=== PATIENT | male | born 1965 | race Caucasian/White ===

== ENCOUNTER 2020-12-31 13:56 | Emergency (ER) | payer OTHER ==
--- NOTE | 2020-12-31 14:30 | ED Physician Documentation ---
History of Present Illness - Stated complaint Stated Complaint: DIZZY/LIGHTHEADED - Chief complaint Chief Complaint: General - History obtained from History obtained from: Patient - Additonal information Additional information: Patient comes emergency department chief complaint of vertigo. He states that he has been noticing this for about 3 weeks and and this started when he was in [place] at [place]. However, he states that whenever he drives in his car it seems to be really bad. He does notice some exacerbation when he sits up or turns his head certain ways. Patient states that after he has been riding in the car, he sometimes has trouble keeping his balance because He feels disoriented from the vertigo. However, he denies any focal deficits. Patient states that if he is not having the dizziness, he does not have the incoordination. He states he feels disoriented sometimes and gets occasional headaches, but otherwise, denies any complaints. He states he feels fairly well now but has a vague sense of vertigo. Patient also expresses concern because he has a leaky exhaust duct within his car and has noticed the smoking and vapors coming up when he lifts up his head. He feels that the carbon monoxide may be getting sucked into his car when he is driving and making him sick. He states they measured his carbon monoxide on scene and got a measurement of 3. It is not clear whether this was high or low. No nausea or vomiting. No lightheadedness or fainting. Review of Systems Ten Systems: 10 systems reviewed and negative Constitutional: reports: Reviewed and negative Eyes: reports: Reviewed and negative Ears: reports: Reviewed and negative Nose: reports: Reviewed and negative Throat: reports: Reviewed and negative Cardiac: reports: Reviewed and negative Respiratory: reports: Reviewed and negative GI: reports: Reviewed and negative : reports: Reviewed and negative Skin: reports: Reviewed and negative Musculoskeletal: reports: Reviewed and negative Neurologic: reports: Other (Vertigo) Psychiatric: reports: Reviewed and negative Endocrine: reports: Reviewed and negative Immunocompromised: reports: Reviewed and negative PD PAST MEDICAL HISTORY - Past Medical History Past Medical History: Yes Respiratory: COPD Psych: Post traumatic stress disorder - Present Medications Home Medications: Ambulatory Orders Medication Instructions Recorded Confirmed Meclizine HCl [Motion Sickness] 25 mg PO Q6HR PRN #20 tablet 12/31/20 - Allergies Allergies/Adverse Reactions: Allergies Allergy/AdvReac Type Severity Reaction Status Date / Time No Known Drug Allergies Allergy Verified 12/31/20 14:03 - Social History Does the pt smoke?: No Smoking Status: Never smoker Does the pt drink ETOH?: No Does the pt have substance abuse?: No - Immunizations Immunizations are current?: Yes - POLST Patient has POLST: No PD ED PE NORMAL - Vitals Vital signs reviewed: Yes - General General: Alert and oriented X 3, No acute distress, Well developed/nourished - HEENT HEENT: Atraumatic, PERRL, EOMI, Ears normal, Moist mucous membranes - Neck Neck: Supple, no meningeal sign - Cardiac Cardiac: RRR, No murmur, Strong equal pulses - Respiratory Respiratory: No respiratory distress, Clear bilaterally - Abdomen Abdomen: Soft, Non tender, Non distended - Derm Derm: Normal color, Warm and dry, No rash - Extremities Extremities: No deformity, No edema, No calf tenderness / cord - Neuro Neuro: Alert and oriented X 3, 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 Normal gait.) - Psych Psych: Normal mood, Normal affect Results - Vitals Vitals: Vital Signs - 24 hr 12/31/20 12/31/20 12/31/20 14:03 14:12 16:33 Temperature 36.8 C 36.5 C 36.8 C Heart Rate 88 90 102 H Respiratory 16 16 18 Rate Blood Pressure 139/99 H 139/99 H 157/101 H O2 Saturation 100 97 97 Oxygen O2 Source Room air - Labs Labs: Laboratory Tests 12/31/20 15:34 VBG Total Hgb 15.3 VBG Oxyhemoglobin 64 L VBG Carboxyhemoglobin 0.8 VBG Methemoglobin 0.3 - Rads (name of study) head CT Radiology: Final report received, EMP read indepedently, See rad report (Negative) PD MEDICAL DECISION MAKING - ED course Complexity details: reviewed results, re-evaluated patient, considered differential, d/w patient ED course: Patient was worked up with CT scan of the head and venous carboxyhemoglobin level, both of which were unremarkable. He was given a dose of meclizine. Patient was found to be feeling better. Discussed using meclizine as needed for the vertigo. I suspect benign positional vertigo and motion related vertigo, exacerbated by driving because of the motion. We have discussed the usual indications for return to the ED. Departure - Departure Disposition: 01 Home, Self Care Clinical Impression: Vertigo Condition: Stable Instructions: ED Vertigo Unspecified Prescriptions: Meclizine HCl [Motion Sickness] 25 mg PO Q6HR PRN #20 tablet PRN Reason: Vertigo Comments: Your carbon monoxide levels are normal. Your head CT is also normal. There is no evidence of an emergent cause of your dizziness today. Please take the medication for dizziness as needed and be sure you drink plenty of fluids. You should still get your car checked to see if the exhaust leak can be fixed, as this could make you feel sick without actually causing a high carbon monoxide level. Discharge Date/Time: 12/31/20 16:33
[2020-12-31] MEDS: MECLIZINE 12.5 MG TABLET PO STA (14:32)
--- NOTE | 2020-12-31 15:00 | CT Report ---
PROCEDURE: HEAD WO INDICATIONS: vertigo TECHNIQUE: Noncontrast 4.5 mm thick angled axial sections acquired from the foramen magnum to the vertex. For r adiation dose reduction, the following was used: automated exposure control, adjustment of mA and/or kV according to patient size. COMPARISON: None. FINDINGS: Image quality: Excellent. CSF spaces: Basal cisterns are patent. No extra-axial fluid collections. Ventricles are normal in size and shape. Brain: No midline shift. No intracranial masses or hemorrhage. Yin-white matter interface is norm al. Skull and face: Calvarium and visualized facial bones are intact, without suspicious lesions. Sinuses: Visualized sinuses and mastoids are clear. IMPRESSION: 1. No acute intracranial process. Reviewed by: Lakshmi Peterson MD on 12/31/2020 2:58 PM PDT Approved by: Lakshmi Peterson MD on 12/31/2020 2:58 PM PDT Station ID: [id number]
[2020-12-31 15:38] LABS: CARBOXYHEMOGLOBIN VENOUS 0.8 % (0-1.5); HEMOGLOBIN TOTAL, VENOUS WB 15.3 g/dL (12.0-18.0); METHEMOGLOBIN VENOUS 0.3 % (0-1.5)
[2020-12-31 16:33] VITALS: BP 157/101
== END 2020-12-31 16:33 | disposition home or self-care (01) ==
LOC: ED 13:56
DX: R42 Dizziness and giddiness (principal); Z77.118 Contact with and (suspected) exposure to other environmental pollution
CPT/HCPCS: 36415; 70450; 82375; 99283; 99284; A9270; 82803